=== PATIENT | female | born 1960 | race Caucasian/White ===

== ENCOUNTER 2016-09-30 13:12 | Outpatient (CLI) | payer OTHER ==
--- NOTE | 2016-09-30 14:20 | DIAGNOSTIC IMAGING REPORT ---
PROCEDURE: XR CHEST 2 VIEW INDICATION: 1 day post right lung biopsy. Follow-up possible pneumothorax. TECHNIQUE: PA and lateral views. COMPARISON: Comparison is made to chest x-ray and CT thorax from [facility] on 09/29/2016. FINDINGS: There is a 3.5 cm lobulated density in right lateral midlung. Postbiopsy parenchymal hemorrhage has resolved. There is no evidence of pneumothorax on today's study (contour of the right anterior first rib may account for appearance of pneumothorax on prior study). Heart and mediastinum are normal. There are surgical clips overlying the right anterior lateral chest wall. Thorax is otherwise normal. IMPRESSION: 1. Status post right lung biopsy with resolving postbiopsy hemorrhage. 2. There is a 3.5 cm of lung mass in the right lateral midlung. 3. No evidence of pneumothorax. 4. Findings discussed with the patient and called to Dr. Guille Anne.
--- NOTE | 2016-09-30 14:20 | DIAGNOSTIC IMAGING REPORT ---
PROCEDURE: XR CHEST 2 VIEW INDICATION: 1 day post right lung biopsy. Follow-up possible pneumothorax. TECHNIQUE: PA and lateral views. COMPARISON: Comparison is made to chest x-ray and CT thorax from [facility] on 09/29/2016. FINDINGS: There is a 3.5 cm lobulated density in right lateral midlung. Postbiopsy parenchymal hemorrhage has resolved. There is no evidence of pneumothorax on today's study (contour of the right anterior first rib may account for appearance of pneumothorax on prior study). Heart and mediastinum are normal. There are surgical clips overlying the right anterior lateral chest wall. Thorax is otherwise normal. IMPRESSION: 1. Status post right lung biopsy with resolving postbiopsy hemorrhage. 2. There is a 3.5 cm of lung mass in the right lateral midlung. 3. No evidence of pneumothorax. 4. Findings discussed with the patient and called to Dr. Guille Anne.
== END 2016-09-30 23:00 ==
LOC: XR SRH 13:12
DX: R91.8 Other nonspecific abnormal finding of lung field (principal)